=== PATIENT | female | born 1945 | race Caucasian/White ===

== ENCOUNTER → 2016-09-17 | Outpatient (CLI) | payer MEDICARE | LOC: OPSV 10:21 → CT 13:30 | DX: C92.10 Chronic myeloid leukemia, BCR/ABL-positive, not having achieved remission (principal); Z85.3 Personal history of malignant neoplasm of breast; Z85.038 Personal history of other malignant neoplasm of large intestine; Z85.42 Personal history of malignant neoplasm of other parts of uterus; E86.0 Dehydration | CPT/HCPCS: 36415; 71260; 74160; 82565; 84520; 96360; 96361; J7030; J7050; Q9962 ==